=== PATIENT | female | born 1965 ===

== ENCOUNTER 2018-07-27 16:16 | Outpatient (CLI) | payer OTHER | END 2018-07-27 16:17 | disposition home or self-care (01) | LOC: C.MAMMO 16:16 | DX: Z12.31 Encounter for screening mammogram for malignant neoplasm of breast (principal) ==

== ENCOUNTER 2018-07-30 15:59 | Outpatient (CLI) | payer OTHER | END 2018-07-30 16:00 | disposition home or self-care (01) | LOC: C.USIC 15:59 | DX: R10.2 Pelvic and perineal pain (principal); D25.9 Leiomyoma of uterus, unspecified ==